=== PATIENT | female | born 1980 | race Caucasian/White ===

== ENCOUNTER 2017-11-19 12:37 | Emergency (ER) | payer BC ==
[~2017-11-19] VITALS: Ht 167.6 cm; Wt 70.5 kg
[2017-11-19 12:40] VITALS: TEMP 97.6
[2017-11-19] MEDS ORDERED: PRENATAL MVI (13:18)
[2017-11-19 13:32] LABS: COLLECTION METHOD CLEAN CATCH
[2017-11-19 13:44] LABS: MUCOUS Present /lpf; PH 7 (5-8); SQUAMOUS EPITHELIAL 0-2 /hpf; URINE APPEARANCE Cloudy; URINE BILIRUBIN Negative (NEGATIVE); URINE BLOOD 3+ (NEGATIVE); URINE COLOR Yellow; URINE GLUCOSE Negative (NEGATIVE); URINE KETONE Trace (NEGATIVE); URINE LEUKOCYTE ESTERASE Negative (NEGATIVE); URINE NITRATE Negative (NEGATIVE); URINE PROTEIN(semi-quant) 1+ (NEGATIVE); URINE RBC >50 /hpf; URINE UROBILINOGEN Negative (NEGATIVE)
[2017-11-19 14:03] LABS: URINE BACTERIA Rare /hpf
[2017-11-19 14:27] LABS: HEMATOCRIT 42.8 % (37.0-47.0); HEMOGLOBIN 14.6 g/dl (12.5-16.0); MEAN CELL VOLUME 91 fl (80.0-100.0); MEAN CORPUSCULAR HEMOGLOBIN 31 pg (27.0-31.0); MEAN CORPUSCULAR HGB CONC 34 g/dl (33.0-37.0); MEAN PLATELET VOLUME 8.9 fl (7.4-10.4); PLATELET COUNT 211 K/mm3 (130-400); REDCELL DISTRIBUTION WIDTH-CV 12.5 % (11.5-14.5)
[2017-11-19 14:38] LABS: ALBUMIN 4.4 gm/dL (3.5-5.0); BILIRUBIN,TOTAL 0.4 mg/dL (0.0-1.0); CALCIUM 8.8 mg/dL (8.4-10.2); CREATININE, serum 0.59 mg/dL (0.52-1.25); POTASSIUM 4.6 mmol/L (3.4-5.0); TOTAL PROTEIN 7.4 gm/dL (6.4-8.2)
[2017-11-19 14:43] LABS: BAND 8 % (0-10); EOSINOPHIL 1 % (0-4); LYMPHOCYTE 6 % (20.0-51.0); NEUTROPHILS 83 % (42.0-75.2); PLATELET ESTIMATE NORMAL (NORMAL)
[2017-11-19] MEDS ORDERED: ZOFRAN ODT4 MG PO (16:18)
[2017-11-19] MEDS ORDERED: PERCOCET 325 MG1 TA2 PO (16:18)
[2017-11-19 17:16] VITALS: BP 106/64; PULSE 70
== END 2017-11-19 17:06 | disposition home or self-care (01) ==
LOC: COL.ER 12:37
PROVIDERS: Physician Assistant
DX: O26.891 Other specified pregnancy related conditions, first trimester (principal); R10.9 Unspecified abdominal pain; R31.9 Hematuria, unspecified; Z3A.01 Less than 8 weeks gestation of pregnancy; Z88.8 Allergy status to other drugs, medicaments and biological substances
CPT/HCPCS: J1170; J2405; J2550; J7030

== ENCOUNTER 2018-06-22 02:58 | Inpatient (IN) | payer BC ==
[2018-06-22] VITALS (23 sets, daily range): BP systolic 110–160; BP diastolic 55–85; PULSE 60–85; TEMP 97.8–98.5
[~2018-06-22] VITALS: Ht 167.6 cm; Wt 85.5 kg
[~2018-06-22 02:58] MED LIST: PERCOCET 325 MG1 TA2 PO; PRENATAL MVI; ZOFRAN ODT4 MG PO
[2018-06-22 05:35] LABS: BASO % 0.2 % (0.0-2.0); EOS % 0.1 % (0-4.0); GRAN # 10.1 (1.4-6.5); GRAN % 85.4 % (42.2-75.2); HEMOGLOBIN 14.6 g/dl (12.5-16.0); LYMPH % 8.3 % (20.0-51.0); MEAN CELL VOLUME 93 fl (80.0-100.0); MEAN CORPUSCULAR HEMOGLOBIN 33 pg (27.0-31.0); MEAN CORPUSCULAR HGB CONC 36 g/dl (33.0-37.0); MEAN PLATELET VOLUME 9.3 fl (7.4-10.4); MONO # 0.6 (0.1-0.6); MONO % 5.1 % (1.7-9.3); PLATELET COUNT 196 K/mm3 (130-400); RED BLOOD COUNT 4.41 M/mm3 (4.10-5.30)
[2018-06-23 01:45] VITALS: BP 109/60; PULSE 58; TEMP 98
[2018-06-23 08:30] VITALS: BP 128/73; PULSE 57; TEMP 97.8
[2018-06-23] MEDS ORDERED: PERCOCET 325 MG1 TA2 PO (09:55)
[2018-06-23] MEDS ORDERED: IBU600 MG PO (09:55)
== END 2018-06-23 13:30 | disposition home or self-care (01) | DRG 775 ==
LOC: LDRO 02:58 → LDR 03:06 → LDRO 04:59 → LDR 05:00 → OB 12:25
PROVIDERS: Obstetrics & Gynecology
PROC: 10E0XZZ Delivery of Products of Conception, External Approach (ICD-10-PCS; principal; 2018-06-22)
PROC: 0KQM0ZZ Repair Perineum Muscle, Open Approach (ICD-10-PCS; 2018-06-22)
DX: O70.1 Second degree perineal laceration during delivery (principal); Z37.0 Single live birth; Z3A.37 37 weeks gestation of pregnancy
CPT/HCPCS: J2590; J7120

== ENCOUNTER → 2020-07-07 | Outpatient (CLI) | payer MEDICAID ==
[~2020-07-07] MED LIST changes: +IBU600 MG PO
== END ==
LOC: MC.RAD 13:15
DX: Z12.31 Encounter for screening mammogram for malignant neoplasm of breast (principal)

== ENCOUNTER → 2021-08-06 | Outpatient (CLI) | payer MEDICAID | LOC: MC.RAD 15:46 | DX: Z12.31 Encounter for screening mammogram for malignant neoplasm of breast (principal) ==

== ENCOUNTER → 2022-08-13 | Outpatient (CLI) | payer MEDICAID | LOC: MC.RAD 11:15 | DX: Z12.31 Encounter for screening mammogram for malignant neoplasm of breast (principal) ==

== ENCOUNTER 2024-07-27 06:27 | Day surgery (SDC) | payer MEDICAID ==
[~2024-07-27] VITALS: Ht 167.6 cm; Wt 77.0 kg
[~2024-07-27 06:27] MED LIST changes: +LR 1,000 ML IV SCH; +Ondansetron 4 MG/2 ML VIAL IV PRN
[2024-07-27] MEDS ORDERED: ZYRTEC 10MG10 MG PO (06:43)
[2024-07-27 07:15] VITALS: BP 145/91; PULSE 81; TEMP 97.2
[2024-07-27 08:40] VITALS: BP 130/95; PULSE 73; TEMP 97.2
--- NOTE | 2024-07-27 08:40 | NUR ---
0840: Pt arrives to [facility] via cart, awake/alert. Pt ambulates to chair, VSS on room air. Denies nausea/pain. Offered PO drink/snack. 904: Dr Barnard in to talk to pt. 15: Discharge instructions reviewed with understanding verbalized. Questions invited and answered. PO tolerated without incident.
[2024-07-27 08:55] VITALS: BP 140/99; PULSE 65
== END 2024-07-27 09:30 | disposition home or self-care (01) ==
LOC: SDCO 06:27
DX: Z12.11 Encounter for screening for malignant neoplasm of colon (principal); K57.30 Diverticulosis of large intestine without perforation or abscess without bleeding; Z80.0 Family history of malignant neoplasm of digestive organs
CPT/HCPCS: J2704; J7120